=== PATIENT | female | born 1940 | race Caucasian/White ===

== ENCOUNTER 2019-03-05 11:52 | Emergency (ER) | payer OTHER ==
[~2019-03-05] VITALS: Ht 152.4 cm; Wt 63.0 kg
[2019-03-05 12:01] VITALS: Ht 152.4 cm; Wt 63.0 kg
[2019-03-05 15:30] VITALS: BP 130/46
== END 2019-03-05 15:30 | disposition home or self-care (01) ==
LOC: ED 11:52
DX: M79.601 Pain in right arm (principal); E11.9 Type 2 diabetes mellitus without complications; E03.9 Hypothyroidism, unspecified
CPT/HCPCS: J1885